=== PATIENT | male | born 1950 | race Asian ===

== ENCOUNTER 2018-10-12 15:32 | Inpatient (IN) | payer OTHER, BC ==
[~2018-10-12] VITALS: Ht 167.6 cm; Wt 70.8 kg
[2018-10-12 16:28] LABS: BASOPHIL % 0.1 % (0-2); PLATELET COUNT 233 x10^3mcL (130-400); RED CELL DISTRIBUTION WIDTH 13.2 % (11.5-14.5)
[2018-10-12 16:32] LABS: UA SPECIFIC GRAVITY >=1.030 (1.005-1.035); microscopic required? YES; urine erythrocyte 3+ (NEGATIVE)
[2018-10-12 16:39] LABS: CALCIUM 9.6 mg/dL (8.5-10.1); CARBON DIOXIDE 25.5 mmol/L (21-32); CHLORIDE SERUM 99 mmol/L (98-107); CREATININE SERUM 1.3 mg/dL (0.7-1.3); GFR1 58 mL/min; GLUCOSE SERUM 123 mg/dL (74-106); POTASSIUM SERUM 3.9 mmol/L (3.5-5.1); SODIUM SERUM 137 mmol/L (136-145)
[2018-10-12 16:43] LABS: ALBUMIN 4.2 g/dL (3.4-5.0); ALKALINE PHOSPHATASE 91 U/L (46-116); ALT/SGPT 51 U/L (16-63); AST/SGOT 9 U/L (15-37); BILIRUBIN TOTAL 1.37 mg/dL (0.20-1.00); TOTAL PROTEIN, SERUM 7.3 g/dL (6.4-8.2)
[2018-10-12 19:01] LABS: PHOSPHOROUS 3.9 mg/dL (2.5-4.9)
[2018-10-12 19:02] LABS: CHOLESTEROL/HDL RATIO 4.8
[2018-10-12 19:47] LABS: AMPHETAMINE QUAL UR NONE DETECTED (See below)
[2018-10-12 19:55] VITALS: BP 115/61
[2018-10-12] MEDS ORDERED: FLO4 PO (21:21)
[2018-10-12] MEDS ORDERED: FINASTERIDE5 M1 PO (21:22)
[2018-10-12] MEDS ORDERED: NOR10T PO (21:22)
[2018-10-13 05:32] VITALS: BP 112/54
[2018-10-13 06:45] LABS: CARBON DIOXIDE 28.4 mmol/L (21-32); CHLORIDE SERUM 108 mmol/L (98-107); CREATININE SERUM 1.1 mg/dL (0.7-1.3); GFR1 > 60 mL/min; GLUCOSE SERUM 136 mg/dL (74-106); MAGNESIUM 2.1 mg/dL (1.8-2.4); PHOSPHOROUS 2.8 mg/dL (2.5-4.9); POTASSIUM SERUM 4.3 mmol/L (3.5-5.1); SODIUM SERUM 142 mmol/L (136-145)
[2018-10-13 06:55] LABS: BASOPHIL % 0.1 % (0-2); PLATELET COUNT 204 x10^3mcL (130-400); RED CELL DISTRIBUTION WIDTH 13.6 % (11.5-14.5)
[2018-10-13 07:59] VITALS: BP 115/60
[2018-10-13 12:30] VITALS: BP 143/65
[2018-10-13 16:09] VITALS: BP 150/69
[2018-10-13 20:37] VITALS: BP 126/70
[2018-10-14 06:00] VITALS: BP 148/64
[2018-10-14 10:01] VITALS: BP 129/68
[2018-10-14 13:28] VITALS: BP 119/67
[2018-10-14 17:22] VITALS: BP 124/68
[2018-10-14 22:00] VITALS: BP 127/66
[2018-10-15 05:17] VITALS: BP 124/64
[2018-10-15 06:21] LABS: CALCIUM 8.9 mg/dL (8.5-10.1); CARBON DIOXIDE 26.9 mmol/L (21-32); CHLORIDE SERUM 105 mmol/L (98-107); CREATININE SERUM 1.1 mg/dL (0.7-1.3); GFR1 > 60 mL/min; GLUCOSE SERUM 116 mg/dL (74-106); POTASSIUM SERUM 4.1 mmol/L (3.5-5.1); SODIUM SERUM 139 mmol/L (136-145)
[2018-10-15 06:27] LABS: BASOPHIL % 0.1 % (0-2); PLATELET COUNT 219 x10^3mcL (130-400)
[2018-10-15 10:05] VITALS: BP 119/63
[2018-10-15] MEDS ORDERED: NITROFURANTOIN100 MG PO (12:40)
[2018-10-15] MEDS ORDERED: TRIMETHOPRIM100 MG PO (12:41)
[2018-10-15 12:44] VITALS: BP 117/63
[2018-10-15] MEDS ORDERED: LAC PO (12:44)
[2018-10-15 13:13] VITALS: BP 117/96
[2018-10-15 13:52] VITALS: Ht 167.6 cm; Wt 70.8 kg
== END 2018-10-15 14:51 | disposition home or self-care (01) | DRG 871 ==
LOC: ED 15:32 → DU 18:02
PROVIDERS: ADMIT Family Medicine
DX: A41.51 Sepsis due to Escherichia coli [E. coli] (principal); N17.0 Acute kidney failure with tubular necrosis; N39.0 Urinary tract infection, site not specified; B96.29 Other Escherichia coli [E. coli] as the cause of diseases classified elsewhere; E78.5 Hyperlipidemia, unspecified; R80.9 Proteinuria, unspecified; N41.9 Inflammatory disease of prostate, unspecified; N40.0 Benign prostatic hyperplasia without lower urinary tract symptoms; Z68.24 Body mass index [BMI] 24.0-24.9, adult; Z85.118 Personal history of other malignant neoplasm of bronchus and lung
CPT/HCPCS: J0696; J1885; J1956; J7030; Q0092